=== PATIENT | male | born 1955 | race Caucasian/White ===

== ENCOUNTER 2017-08-07 08:16 | Day surgery (SDC) | payer OTHER ==
[~2017-08-07] VITALS: Ht 170.2 cm; Wt 81.6 kg
[2017-08-07] MEDS ORDERED: SIMETHICONE 40 MG/0.6 ML ML ONE (08:33)
[2017-08-07] MEDS ORDERED: MEPERIDINE HCL/PF 100 MG/ML AMP ONE (08:36)
[2017-08-07] MEDS: MIDAZOLAM HCL 5 MG/5 ML VIAL ONE ×2 (09:06→09:08)
[2017-08-07 10:46] VITALS: BP_SYST 133
== END 2017-08-07 10:15 | disposition home or self-care (01) ==
LOC: SDS 08:16 → SMU 09:34 → SDS 10:15
PROVIDERS: ATTEND Internal Medicine Gastroenterology
PROC: 0DBK8ZX Excision of Ascending Colon, Via Natural or Artificial Opening Endoscopic, Diagnostic (ICD-10-PCS; principal; 2017-08-07 09:00)
DX: Z12.11 Encounter for screening for malignant neoplasm of colon (principal); D12.2 Benign neoplasm of ascending colon; D12.5 Benign neoplasm of sigmoid colon; E11.9 Type 2 diabetes mellitus without complications; Z79.84 Long term (current) use of oral hypoglycemic drugs; Z79.4 Long term (current) use of insulin
CPT/HCPCS: 45385; 82962; 88305; J2175; J2250; J7030